=== PATIENT | female | born 1965 | race Caucasian/White ===

== ENCOUNTER 2025-08-16 20:33 | Observation (INO) | payer OTHER ==
[~2025-08-16] VITALS: Ht 162.6 cm; Wt 60.7 kg
[2025-08-16 23:30] VITALS: BP 122/85
[2025-08-17] MEDS ORDERED: Albuterol 2.5 MG/3 ML VIAL INH SCH (00:30)
[2025-08-17] MEDS ORDERED: Ipratropium/Albuterol SulF 2.5-0.5MG/3 ML Amp INH SCH (00:30)
[2025-08-17] MEDS ORDERED: FLU VACC TS2025-26(6MOS UP)/PF 45 MCG/0.5 ML SYRINGE IM SCH (00:30)
[2025-08-17 01:15] LABS: pH Blood Venous 7.41 (7.34-7.37)
[2025-08-17 04:03] VITALS: BP 104/76
[2025-08-17 04:38] LABS: BASOPHILS ABSOLUTE AUTO 0.01 K/mm3 (0.00-0.23); BASOPHILS PERCENT AUTO 0 % (0-2); EOSINOPHILS ABSOLUTE AUTO 0.01 K/mm3 (0.00-0.68); EOSINOPHILS PERCENT AUTO 0 % (0-6); Hematocrit 38.5 % (33.0-51.0); Hemoglobin 11.8 g/dL (11.5-16.0); IMMATURE GRAN ABSOLUTE AUTO 0.02 K/mm3 (0.00-0.10); IMMATURE GRAN PERCENT AUTO 0 % (0-1); LYMPHOCYTES ABSOLUTE AUTO 0.57 K/mm3 (0.84-5.20); LYMPHOCYTES PERCENT AUTO 12 % (21-46); MONOCYTES ABSOLUTE AUTO 0.06 K/mm3 (0.16-1.47); MONOCYTES PERCENT AUTO 1 % (4-13); Mean Corpuscular HGB Conc 30.6 g/dL (31.5-36.5); Mean Corpuscular Volume 101 fL (80-100); NEUTROPHILS ABSOLUTE AUTO 4.29 K/mm3 (1.96-9.15); NEUTROPHILS PERCENT AUTO 87 % (41-73); NRBC ABSOLUTE 0.00 K/mm3 (0.00-0.02); NRBC Auto 0.0 /100 WBC (0.0-0.2); Platelet Count 136 K/mm3 (150-400); RDW Coefficient Variation 11.9 % (11.7-14.2); RDW Standard Deviation 44.8 fL (35.1-46.3)
[2025-08-17 04:54] LABS: Magnesium, Blood 1.9 mg/dL (1.6-2.4)
--- NOTE | 2025-08-17 04:54 | NUR ---
PT ARRIVED TO [facility] 8 @ 230. PT AXOX2 AND DROWSY. BIPAP ON AND IN PLACE WITH O2>92%. CO2 IMPROVING ON VBG NOW AT 76.6. PUREWICK ON AND IN PLACE. ALL OTHER VSS. BED IN LOWEST POSITION AND CALL LIGHT WITHIN REACH.
[2025-08-17 05:21] LABS: Alanine Aminotransfer (ALT/SGP 22 U/L (12-78); Albumin, Blood 3.7 g/dL (3.4-5.0); Albumin/Globulin Ratio 1.2 (0.8-1.8); Anion Gap Unable to Calculate mmol/L (3-11); Aspartate Aminotrans (AST/SGOT 18 U/L (12-37); Bilirubin, Total 0.4 mg/dL (0.1-1.0); Blood Urea Nitrogen 10 mg/dL (8-24); Calcium, Blood 8.7 mg/dL (8.5-10.1); Chloride, Blood 90 mmol/L (98-108); Creatinine, Blood 0.31 mg/dL (0.40-1.00); Globulin, Blood 3.1 g/dL (2.2-4.0); Glucose, Blood 187 mg/dL (70-99); Potassium, Blood 4.1 mmol/L (3.5-5.5); Sodium, Blood 134 mmol/L (136-145); Total Protein, Blood 6.8 g/dL (6.4-8.2)
[2025-08-17 05:22] LABS: CO2, Blood >45 mmol/L (21-32)
[2025-08-17 07:07] LABS: pH Blood Venous 7.51 (7.34-7.37)
[2025-08-17] MEDS ORDERED: BEVESPI AEROS10.7 G1 INH ×2 (07:47→07:49)
[2025-08-17] MEDS ORDERED: ALBU90OI INH (07:47)
[2025-08-17] MEDS ORDERED: BUSP5 PO (07:50)
[2025-08-17] MEDS ORDERED: GABA300 PO (07:51)
[2025-08-17] MEDS ORDERED: PARO25 PO (07:52)
[2025-08-17 07:53] VITALS: BP 111/76
[2025-08-17] MEDS ORDERED: PAROXETINE ER37.5 MG PO (07:53)
[2025-08-17] MEDS ORDERED: BUDESONIDE1 MG/2 M1 INH (07:56)
[2025-08-17] MEDS ORDERED: EUTHYROX125 MCG PO (07:57)
[2025-08-17] MEDS ORDERED: ALEN70 PO (07:57)
[2025-08-17] MEDS ORDERED: OMEP20ER PO (07:58)
[2025-08-17] MEDS ORDERED: BUPRENORPHN-NA1 EACH SL (07:59)
[2025-08-17] MEDS ORDERED: Triamcinolone A15 G4 EXT (08:02)
[2025-08-17] MEDS ORDERED: VITAMIN D5000 UNIT PO (08:04)
[2025-08-17] MEDS ORDERED: OMEGA-3 KRILL1 EAC4 (08:04)
[2025-08-17] MEDS ORDERED: OMEGA-3 FISH O1 EA13 PO (08:07)
[2025-08-17] MEDS ORDERED: Enoxaparin 40 MG/0.4 ML SYR SC SCH (09:00)
--- NOTE | 2025-08-17 09:15 | NUR ---
Assisted up to walk to bathroom. pt is steady on her feet, wearing 3 l/min O2 and tolerating activity well. She is fully awake. Son Tony with his family at bedside.
[2025-08-17] MEDS ORDERED: Albuterol 2.5 MG/3 ML VIAL INH PRN (11:10)
[2025-08-17 12:24] VITALS: BP 107/78
--- NOTE | 2025-08-17 14:55 | NUR ---
approx 1400: Pt was discharged with with her son Tony to go home to [place] with them. She was taken out in a wheelchair, with her own home O2 tank by the [facility].
== END 2025-08-17 14:12 | disposition home or self-care (01) ==
LOC: PCU 20:33
PROVIDERS: ADMIT Student in an Organized Health Care Education/Training Program
DX: G93.41 Metabolic encephalopathy (principal); J96.22 Acute and chronic respiratory failure with hypercapnia; F41.9 Anxiety disorder, unspecified; J44.1 Chronic obstructive pulmonary disease with (acute) exacerbation; F32.A Depression, unspecified; K21.9 Gastro-esophageal reflux disease without esophagitis; E03.9 Hypothyroidism, unspecified; F12.10 Cannabis abuse, uncomplicated; F11.21 Opioid dependence, in remission; F17.210 Nicotine dependence, cigarettes, uncomplicated; Z99.81 Dependence on supplemental oxygen; Z88.8 Allergy status to other drugs, medicaments and biological substances
CPT/HCPCS: 36415; 80053; 82803; 83735; 85025; 94640; 94660; 94664; 94760; 94761; 94762; J1650